=== PATIENT | male | born 2000 | race Caucasian/White ===

== ENCOUNTER 2022-02-11 09:21 | Emergency (ER) | payer OTHER, SELFPAY ==
--- NOTE | ~2022-02-11 | XR_ITS ---
EXAMINATION: XR forearm LT 2V INDICATION: Left forearm pain and laceration TECHNIQUE: Two views of the right forearm are obtained. COMPARISON: None available FINDINGS: Bone alignment is normal. There is no fracture. Lateral soft tissue laceration overlying th e distal radius. IMPRESSION: 1. No acute osseous abnormality. Reviewed, dictated and finalized at location B.
[2022-02-11 09:25] VITALS: BP 160/103; PULSE 68; RESP 18; O2SAT 100
--- NOTE | 2022-02-11 09:38 | ED.UPPEXIN ---
HPI - Extremity Injury (Upper) General Chief Complaint: Extremity Injury, Upper Stated Complaint: lac bleeding Time Seen by Provider: 02/11/22 09:22 History of Present Illness HPI narrative: 21-year-old male presents the emergency room for evaluation of a laceration to his left forearm. Patient states that he light fixture fell from the ceiling and cut his left forearm. Tetanus is not up-to-date. Related Data Allergies Allergy/AdvReac Type Severity Reaction Status Date / Time morphine AdvReac Severe Hallucinati Verified 02/11/22 09:50 ng diazepam AdvReac Unknown Hallucinati Verified 02/11/22 09:50 ng Review of Systems Review of Systems: CONSTITUTIONAL: Denies fever, chills, or sweats. EYES: Denies visual changes, redness, or discharge. ENT: Denies rhinorrhea, congestion, sore throat, or otalgia. CARDIOVASCULAR: Denies chest pain, palpitations, or edema. RESPIRATORY: Denies cough or dyspnea. GASTROINTESTINAL: Denies abdominal pain, nausea, vomiting, or diarrhea. GENITOURINARY: Denies dysuria or hematuria. SKIN: Reports laceration left forearm MUSCULOSKELETAL: Denies back pain, joint pain, or myalgia. NEUROLOGIC: Denies headache, numbness, dizziness, or weakness. PSYCHIATRIC: Denies anxiety or depression. Exam Narrative: GENERAL: Well-appearing, well-nourished, no physical limitations, and in no acute distress. HEAD: Normocephalic, atraumatic. EYES: Conjunctivae normal, PERRLA and EOMI. CHEST: Clear to auscultation. No respiratory distress. No wheezes rales or rhonchi. No tenderness. HEART: Regular rate and rhythm. No murmur heard. Normal peripheral pulses. EXTREMITIES: Normal range of motion. No edema. No clubbing or cyanosis SKIN: Left forearm: 6 cm linear laceration posterior to the midshaft of the left forearm NEURO: No focal deficits. Alert and oriented x3. MAEW. CN's II-XI intact bilaterally, normal gait PSYCH: Cooperative. Normal mood and affect. Course Vital Signs Vital signs: Vital Signs Pulse Rate 68 02/11/22 09:25 Respiratory Rate 18 02/11/22 09:25 Blood Pressure 160/103 H 02/11/22 09:25 Pulse Oximetry 100 02/11/22 09:25 Pulse Rate 68 02/11/22 09:25 Respiratory Rate 18 02/11/22 09:25 Blood Pressure 160/103 H 02/11/22 09:25 Pulse Oximetry 100 02/11/22 09:25 Procedures Laceration Laceration 1: Date: 02/11/22 Time: 10:54 Site: upper extremity Side (If applicable): left Size (cm): 7 Description: linear Depth: simple, single layer Local Anesthetic: lidocaine 1% and with epi Amount of anesthesia used (mL): 12 Pre-repair: irrigated ====== Skin Level ====== Skin layer closed with: nylon Size (cm): 3-0 Number of sutures: 13 Technique: simple, interrupted ====== Subcutaneous Layer ====== ====== Muscle Layer ====== ====== Tendon Layer ====== Discharge Plan Discharge Clinical Impression: Laceration of forearm, left Patient Disposition: Home, Self-Care Condition: Stable Instructions: Antibiotic Form, Laceration (ED) Additional Instructions: Tylenol and ibuprofen as needed for pain. Keep wound clean and dry. May shower but recommend not getting any kind dirty water. Monitor for signs and symptoms of infection which include redness, swelling, tenderness, purulent drainage. Stitches came out in 10 days. Prescriptions: New cephalexin 500 mg capsule 500 mg PO Q8H 7 Days Qty: 21 0RF Follow-up/Referrals: Blake Jackson MD [Physician] - Time of Disposition: 10:57
[2022-02-11] MEDS: TETANUS,DIPHTHERIA,AC PERTUSSIS ADULT (0.5 ML) BOOSTRIX IM (09:44)
== END 2022-02-11 11:05 | disposition home or self-care (01) ==
PROVIDERS: Emergency Provider Nurse Practitioner Family
DX: S51.812A Laceration without foreign body of left forearm, initial encounter (principal); W26.9XXA Contact with unspecified sharp object(s), initial encounter; Z23 Encounter for immunization
CPT/HCPCS: 12002; 73090; 90471; 90715; 99283

== ENCOUNTER 2022-02-21 14:20 | Emergency (ER) | payer BC, SELFPAY ==
[2022-02-21 14:33] VITALS: BP 140/62; PULSE 77; RESP 18; TEMP 36.5; O2SAT 100
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
== END 2022-02-21 15:42 | disposition home or self-care (01) ==
PROVIDERS: Emergency Provider Nurse Practitioner
DX: S51.812D Laceration without foreign body of left forearm, subsequent encounter (principal); L03.114 Cellulitis of left upper limb; W45.8XXD Other foreign body or object entering through skin, subsequent encounter
CPT/HCPCS: 99213; G0463

== ENCOUNTER 2022-04-10 17:38 | Emergency (ER) | payer OTHER, BC, SELFPAY ==
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
--- NOTE | ~2022-04-10 | XR_ITS ---
XR lumbar spine 2-3V 04/10/2022 20:21 Indication: Low back pain Procedure: 3 views lumbar spine Comparison: No prior studies for comparison. Findings: There is an L5 limbus vertebra. No fracture, subluxation or dislocation. No significant dis c narrowing. Vertebral body heights are maintained. No evidence for spondylolisthesis. Normal lumbar lordosis. Pedicles intact. Sacral foramen are symmetric. Impression: 1: No acute abnormality of the lumbar spine. Reviewed, dictated and finalized at location A. Impression: 1: No acute abnormality of the lumbar spine.
[2022-04-10 17:45] VITALS: BP 152/89; PULSE 76; RESP 18; TEMP 37.1; O2SAT 98
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
== END 2022-04-10 21:19 | disposition home or self-care (01) ==
PROVIDERS: Emergency Provider Emergency Medicine
DX: S39.012A Strain of muscle, fascia and tendon of lower back, initial encounter (principal); F17.290 Nicotine dependence, other tobacco product, uncomplicated; V49.40XA Driver injured in collision with unspecified motor vehicles in traffic accident, initial encounter
CPT/HCPCS: 72100; 73521; 99284